=== PATIENT | female | born 1960 | race Caucasian/White ===

== ENCOUNTER 2022-08-19 12:45 | Outpatient (CLI) | payer OTHER, SELFPAY ==
--- NOTE | 2022-08-19 13:10 | MM_ITS ---
WS: [id number] BILATERAL 3D TOMOSYNTHESIS DIGITAL SCREENING MAMMOGRAPHY WITH CAD CLINICAL INFORMATION: SCREENING HISTORY: Screening mammogram. No current complaints. COMPARISON: Outside mammograms November 24, 2020,2015. TECHNIQUE: Bilateral CC and MLO views. FINDINGS: Scattered fibroglandular densities bilaterally. Increasing ovoid nodule central LEFT breast posterior depth significantly increased in size compared to previous, today measuring 8 mm. Recommend further evaluation with LEFT breast diagnostic mammography and ultrasound. Stable partially obscured density outer RIGHT breast stable in appearance previously shown to represe nt a cyst. This measures 3.6 x 3.4 cm today. MM/[id number] IMPRESSION: BI-RADS: 0-Incomplete: Need additional imaging evaluation FOLLOW UP: Need Additional Imaging Recommend further evaluation with LEFT breast diagnostic mammography and ultras ound.
== END 2022-08-19 12:46 | disposition home or self-care (01) ==
LOC: RAD 12:49
PROVIDERS: PCP Nurse Practitioner Family; Visit Provider Nurse Practitioner Family
DX: Z12.31 Encounter for screening mammogram for malignant neoplasm of breast (principal)
CPT/HCPCS: 77063; 77067

== ENCOUNTER 2022-09-24 13:28 | Outpatient (CLI) | payer OTHER, SELFPAY ==
--- NOTE | 2022-09-24 13:37 | MM_ITS ---
WS: [id number] LEFT 3D TOMOSYNTHESIS DIGITAL MAMMOGRAPHY WITH CAD CLINICAL INFORMATION: ABNORMAL MAMMO COMPARISON: August 19, 2022 TECHNIQUE: 3 views of the left breast were obtained. FINDINGS: Scattered fibroglandular densities of the left breast. Again seen is the well-circumscribed ovoid den sity near the 6:00 position posterior depth measuring approximately 8 mm. Ultrasound described below. ULTRASOUND BREAST LEFT TECHNIQUE: Ultrasound left breast focused area of concern. CLINICAL INFORMATION: ABNORMAL MAMMO FINDINGS: Ultrasound LEFT breast at the 6:00 position. At the 6:00 position, 1 cm from the nipple, is a simple cyst with through transmission measuring 7.2 x 6.2 x 7.9 mm. No other suspicious findings. Recommend return to annual screening mammography. MM/[id number] IMPRESSION: BI-RADS: 2-Benign FOLLOW UP: 1 Year Follow-up Recommend return to annual screening mammography.
== END 2022-09-24 13:29 | disposition home or self-care (01) ==
LOC: RAD 13:31
PROVIDERS: PCP Nurse Practitioner Family; Visit Provider Nurse Practitioner Family
DX: R92.8 Other abnormal and inconclusive findings on diagnostic imaging of breast (principal); N60.02 Solitary cyst of left breast
CPT/HCPCS: 76642; 77061; G0279

== ENCOUNTER 2023-10-27 08:52 | Outpatient (CLI) | payer OTHER, SELFPAY ==
--- NOTE | 2023-10-27 09:00 | MM_ITS ---
WS: [id number] BILATERAL SCREENING DIGITAL TOMOSYNTHESIS MAMMOGRAM WITH CAD HISTORY: SCREENING COMPARISON: 09/24/2022, 11/24/2020, 08/19/2022 Bilateral CC and MLO views with tomosynthesis and synthetic mammography submitted. Computer aided det ection analyzed. Breast composition: There are scattered areas of fibroglandular density. No suspicious masses, microc alcifications or architectural distortion. Long-term stability of a high density mass in the RIGHT br east at 9:00. Mass measures 3.8 x 3.1 cm. Noted to be a cyst on a prior ultrasound. Benign calcificat ions LEFT breast. No additional mass or nodules are identified. IMPRESSION: MM/[id number] BI-RADS: 2-Benign FOLLOW UP: 1 Year Follow-up
== END 2023-10-27 08:53 | disposition home or self-care (01) ==
LOC: MOBLMAM 08:57
PROVIDERS: PCP Nurse Practitioner Family; Visit Provider Nurse Practitioner Family
DX: Z12.31 Encounter for screening mammogram for malignant neoplasm of breast (principal)
CPT/HCPCS: 77063; 77067

== ENCOUNTER 2024-11-14 15:56 | Outpatient (CLI) | payer SELFPAY ==
--- NOTE | 2024-11-14 16:00 | MM_ITS ---
WS: [id number] BILATERAL 3D TOMOSYNTHESIS DIGITAL SCREENING MAMMOGRAPHY WITH CAD CLINICAL INFORMATION: screening HISTORY: Screening mammogram. No current complaints. COMPARISON: 2023 TECHNIQUE: Bilateral CC and MLO views. FINDINGS: Scattered fibroglandular densities bilaterally. No suspicious focal mass, asymmetry, calcifications, or architectural distortion. No evidence of malignancy. Long-term stability of a previously described lobulated mass in the RIGHT breast at 9:00. This was demonstrated to represent a cyst on prior ultra sound. Incidental calcifications LEFT breast. MM/MM [facility] tomosynthesis [id number] IMPRESSION: DENSITY: There are scattered areas of fibroglandular density. BI-RADS: 2 - Benign. FOLLOW UP: 1 Year Follow-up Recommend return to annual screening mammography.
== END 2024-11-14 15:57 | disposition home or self-care (01) ==
PROVIDERS: PCP Nurse Practitioner Family; Visit Provider Nurse Practitioner Family
DX: Z12.31 Encounter for screening mammogram for malignant neoplasm of breast (principal); R92.323 Mammographic fibroglandular density, bilateral breasts; N64.89 Other specified disorders of breast; R92.1 Mammographic calcification found on diagnostic imaging of breast
CPT/HCPCS: 77063; 77067